=== PATIENT | female | born 1945 ===

== ENCOUNTER 2021-06-26 06:37 | Day surgery (SDC) | payer OTHER ==
[~2021-06-26 06:37] MED LIST: ACID REDUCER20 M1 PO; CHILDREN'S ASPI81 MG PO; GLIPIZIDE XL10 MG PO; HYDROCHLOROTHIA25 MG PO; JENTADUETO XR1 EACH PO; ZESTRIL20 MG PO; [UNRECOGNIZED DRUG - OTHER]
[2021-06-26] MEDS ORDERED: MIRALAX17 GM PO (10:57)
[2021-06-26] MEDS ORDERED: ULTRAM50 MG PO (10:57)
[2021-06-26] MEDS ORDERED: TYLENOL ARTHRI650 MG PO (10:57)
== END 2021-06-26 16:20 | disposition home or self-care (01) ==
LOC: CIR.AMB 06:37 → EDBD 12:15 → CIR.AMB 16:20
PROVIDERS: ATTEND Surgery
DX: K42.9 Umbilical hernia without obstruction or gangrene (principal); K80.10 Calculus of gallbladder with chronic cholecystitis without obstruction; Z20.822 Contact with and (suspected) exposure to COVID-19